=== PATIENT | male | born 1990 | race Hispanic/Latino ===

== ENCOUNTER → 2020-07-11 | Day surgery (SDC) | payer OTHER ==
[~2020-07-11] MED LIST: BUPIVACAINE HCL 0.5% INJ 30 ML VIAL INJ ONE; CEFAZOLIN SOD 1 GM/NS 50ML 50 ML IV ONE; FENTANYL CITRATE/PF 100MCG/2 ML INJ ONE; IBUPROFEN200 MG PO; MUPIROCIN 2% OINT 22 GM TUBE ONE; VICODIN HP 10-1 EAC1 PO
[2020-07-11 13:20] VITALS: BP 125/65
== END | disposition home or self-care (01) ==
LOC: OR 10:16
PROVIDERS: ATTEND Plastic Surgery
DX: S62.627A Displaced fracture of middle phalanx of left little finger, initial encounter for closed fracture (principal); X58.XXXA Exposure to other specified factors, initial encounter; Z01.812 Encounter for preprocedural laboratory examination; Z20.822 Contact with and (suspected) exposure to COVID-19
CPT/HCPCS: 26735; C1713 ×2; J0690; J3010; U0002

== ENCOUNTER 2020-08-21 11:55 | Outpatient (RCR) | payer OTHER ==
[~2020-08-21 11:55] MED LIST changes: -BUPIVACAINE HCL 0.5% INJ 30 ML VIAL INJ ONE; -CEFAZOLIN SOD 1 GM/NS 50ML 50 ML IV ONE; -FENTANYL CITRATE/PF 100MCG/2 ML INJ ONE; -MUPIROCIN 2% OINT 22 GM TUBE ONE
== END 2020-08-22 ==
LOC: OT 11:55
PROVIDERS: ATTEND Plastic Surgery
DX: S62.607A Fracture of unspecified phalanx of left little finger, initial encounter for closed fracture (principal); M25.542 Pain in joints of left hand; M25.642 Stiffness of left hand, not elsewhere classified; W21.05XA Struck by basketball, initial encounter

== ENCOUNTER 2020-09-20 12:00 | Outpatient (RCR) | payer OTHER | END 2020-09-21 | LOC: OT 12:00 | PROVIDERS: ATTEND Plastic Surgery | DX: S62.607A Fracture of unspecified phalanx of left little finger, initial encounter for closed fracture (principal) ==

== ENCOUNTER 2020-10-12 10:00 | Outpatient (RCR) | payer OTHER | END 2020-10-22 | LOC: OT 10:00 | PROVIDERS: ATTEND Plastic Surgery ==